=== PATIENT | male | born 1985 | race Caucasian/White ===

== ENCOUNTER 2021-10-04 17:49 | Emergency (ER) | payer OTHER ==
[2021-10-04] MEDS: hydrOXYzine HCl 25 MG Tab PO ONE (18:34)
== END 2021-10-04 19:20 | disposition home or self-care (01) ==
LOC: LB.ED 17:49
DX: F41.9 Anxiety disorder, unspecified (principal); Z20.822 Contact with and (suspected) exposure to COVID-19
CPT/HCPCS: 36415; 80053; 85025; 99282; 99283; A9270-GY; U0002